=== PATIENT | female | born 1980 | race Caucasian/White ===

== ENCOUNTER 2019-04-16 01:27 | Emergency (ER) | payer OTHER ==
[~2019-04-16] VITALS: Ht 172.7 cm; Wt 84.9 kg
[2019-04-16 01:34] VITALS: BP 150/89; PULSE 82; RESP 18; Ht 172.7 cm; Wt 84.9 kg
[2019-04-16] MEDS ORDERED: HYDR25SU23 PR (03:09)
[2019-04-16] MEDS ORDERED: DOCU-144 PO (03:13)
--- NOTE | 2019-04-16 03:13 | ERD ---
ER Documentation Chief Complaint Chief Complaint RECTAL PAIN, ITCHING X'S 4 DAYS HPI 38-year-old female with history of hemorrhoids x1 year presents to the ED complaining of worsening rectal pain and itching x4 days. Patient states she sits in the bathroom for long periods of time. She denies any constipation. Sh e denies any bloody stools. She states pain is worse when using the bathroom. Denies any associated abdominal pain, nausea, vomiting. No other complaints. ROS All systems reviewed and are negative except as per history of present illness. Medications Home Meds Active Scripts Hydrocortisone Acetate (Anusol-Hc) 25 Mg Supp.rect, 1 SUPP MN BID PRN for HEMORROID PAIN/ITCHING, #12 SUPP.RECT Prov:RIVERA MULTANI PA-C 04/16/19 Allergies Allergies: Coded Allergies: No Known Allergy (Unverified , 04/16/19) PMhx/Soc Medical and Surgical Hx: pt denies Medical Hx History of Surgery: Yes (Appendectomy at 13yrs old) Hx Alcohol Use: No Hx Substance Use: No Hx Tobacco Use: Yes Smoking Status: Current every day smoker Physical Exam Vitals Vital Signs Date Temp Pulse Resp B/P (MAP) Pulse Ox O2 O2 Flow FiO2 Time Delivery Rate 04/16/19 98.5 82 18 150/89 100 01:34 (109) Physical Exam Const: No acute distress Head: Atraumatic Eyes: Normal Conjunctiva ENT: Normal External Ears, Nose and Mouth. Neck: Full range of motion. No meningismus. Abd: Soft, non tender, non distended. Normal bowel sounds. + Multiple tender fluctuant masses around the anal rectal area, consistent with hemorrhoids. Skin: No petechiae or rashes Neur: Awake and alert Psych: Normal Mood and Affect Procedures/MDM 38-year-old female presents with what appears to be hemorrhoids. There is no evidence of thrombosed hemorrhoids, surrounding cellulitis, abscess or deep spa ce tissue infection. Patient will be treated with outpatient stool softeners, as well as topical corticosteroids. Dietary modifications discussed. Recommend follow-up with her primary care provider sometime this week. Strict return precautions were discussed. Prescription: Anusol, Colace. Smoking Cessation Therapy: Pt. was lectured for greater than 3 minutes on the health risks of continued smoking and the benefits of cessation. Blood Pressure Assessment: Patient's blood pressure was elevated (>120/80) but appears stable without evidence of hypertension emergency or urgency. The patient was counseled about the risks of hypertension and urged to pursue outpatient monitoring and therapy within a week with their primary care physician. Departure Diagnosis: Primary Impression: Hemorrhoids Hemorrhoid type: unspecified Qualified Codes: K64.9 - Unspecified hemorrhoids Condition: Stable Patient Instructions: Treating Hemorrhoids: Self-Care, Hemorrhoid Surgery, Hemorrhoids Referrals: [facility] - [place] YOU HAVE RECEIVED A MEDICAL SCREENING EXAM AND THE RESULTS INDICATE THAT YOU DO NOT HAVE A CONDITION THAT REQUIRES URGENT TREATMENT IN THE EMERGENCY DEPARTMENT. FURTHER EVALUATION AND TREATMENT OF YOUR CONDITION CAN WAIT UNTIL YOU ARE SEEN IN YOUR DOCTORS OFFICE WITHIN THE NEXT 1-2 DAYS. IT IS YOUR RESPONSIBILITY TO MAKE AN APPOINTMENT FOR FOLOW-UP CARE. IF YOU HAVE A PRIMARY DOCTOR --you should call your primary doctor and schedule and appointment IF YOU DO NOT HAVE A PRIMARY DOCTOR YOU CAN CALL OUR PHYSICIAN REFERRAL HOTLINE AT . IF YOU CAN NOT AFFORD TO SEE A PHYSICIAN YOU CAN CHOSE FROM THE FOLLOWING [facility] INSTITUTIONS: [facility] [address] [place] [address] [facility] [address] [place] [address] [facility] [address] [place] [address] Additional Instructions: Increase your water intake, I also recommend Epson salt baths for about 10 mi nutes a day for relief as well. Try the steroid, and prescribed you. If symptoms persist past 1 week, call your primary care physician for referral to a general surgeon. Return here for any worsening symptoms. RIVERA MULTANI PA-C Apr 16, 2019 03:13
== END 2019-04-16 03:22 | disposition home or self-care (01) ==
LOC: FTE 01:27
DX: K64.9 Unspecified hemorrhoids (principal); F17.210 Nicotine dependence, cigarettes, uncomplicated
CPT/HCPCS: 99284